=== PATIENT | female | born 2000 | race Caucasian/White ===

== ENCOUNTER 2024-01-30 23:58 | Emergency (ER) | payer SELFPAY ==
[2024-01-31] VITALS: BP 123/73; PULSE 77; TEMP 36.6; O2SAT 98; BMI 19.1
[2024-01-31] MEDS: PREDNISONE 20 MG TABLET 40 MG PO (00:24)
[2024-01-31] MEDS: CYCLOBENZAPRINE HCL 10 MG TABLET PO (00:24)
--- NOTE | 2024-01-31 00:32 | ED.GENADUL1 ---
HPI HPI - General Adult General Chief complaint: Back Pain/Injury Stated complaint: back pain Time Seen by Provider: 01/30/24 23:58 Source: patient Mode of arrival: walk-in Limitations: no limitations History of Present Illness HPI narrative: 23-year-old female to the emergency department chief complaint of back pain for over a month. She was seen at an outside hospital and had an x-ray performed which was negative. She has been taking Robaxin but it causes vomiting. She took naproxen. She has been using Excedrin at home as well. She reports the pain is worse when bending over. She denies any numbness, weakness, tingling. No bowel bladder incontinence or retention. No saddle anesthesia. She failed to follow-up with primary care or establish visit. The inciting injury was tripping over a cart at work. She did not fall to the ground. She reports she twisted funny has had back pain ever since. Pain is across her lower back. There is no radiation of the pain. She denies . Related Data Previous Rx's ?Medication ?Instructions ?Recorded cyclobenzaprine 10 mg tablet 10 mg PO BID PRN muscle spasm #10 01/31/24 tabs prednisone 20 mg tablet 40 mg (2 x 20 mg) PO DAILY 5 days 01/31/24 #10 tabs Allergies Allergy/AdvReac Type Severity Reaction Status Date / Time No Known Drug Allergies Allergy Verified 01/31/24 00:05 Opioid HPI Opioid Management Most Recent Opioid Data: No Data to Display Review of Systems ROS Status of ROS 10 or more systems reviewed and unremarkable except as noted in history and below PFSH PFSH Social History Little interest or pleasure in doing things: not at all Feeling down, depressed, or hopeless: not at all Exam Narrative Exam Narrative: VITALS: I have reviewed the triage vital signs. GENERAL: Well developed, well appearing adult in no acute distress. NEURO: Alert and oriented. Moves all extremities. Face is symmetric and expressive. Patellar reflexes brisk and equal bilaterally. Normal gait. Plantar flexion/dorsiflexion, knee flexion/extension, hip flexion/extension are grossly intact with 5/5 strength. Sensation is intact across the bilateral lower extremities. SPINE: No midline cervical, thoracic, or lumbar tenderness. No step-off or deformities. No paraspinal muscle tenderness or increased tone. EYES: PERRL. No scleral icterus or conjunctival injection. No discharge. HENT: Normocephalic, atraumatic. Hearing is grossly intact. Nares grossly patent and without discharge. Mucous membranes moist. NECK: No JVD. Patient moves neck without restriction. GI/: Abdomen is soft and non-tender. Normoactive bowel sounds. No flank tenderness. EXTREMITIES: Symmetric muscle bulk. No joint swelling. No clubbing, cyanosis, or deformity. SKIN: Warm and dry. Normal turgor. No rash or lesions appreciated. PSYCH: Mood, affect, and interaction is appropriate to the setting. Constitutional Vital Signs, click to edit/add: Last Vital Signs Temp 97.8 F 01/31/24 00:00 Pulse 77 01/31/24 00:00 Resp 18 01/31/24 00:00 BP 123/73 01/31/24 00:00 Pulse Ox 98 01/31/24 00:00 O2 Del Method Room Air 01/31/24 00:00 Course Vital Signs Vital signs: Vital Signs Temperature 97.8 F 01/31/24 00:00 Pulse Rate 77 01/31/24 00:00 Respiratory Rate 18 01/31/24 00:00 Blood Pressure 123/73 01/31/24 00:00 Pulse Oximetry 98 01/31/24 00:00 Oxygen Delivery Method Room Air 01/31/24 00:00 Temperature 97.8 F 01/31/24 00:00 Pulse Rate 77 01/31/24 00:00 Respiratory Rate 18 01/31/24 00:00 Blood Pressure 123/73 01/31/24 00:00 Pulse Oximetry 98 01/31/24 00:00 Oxygen Delivery Method Room Air 01/31/24 00:00 Medical Decision Making [facility] Narrative Medical decision making narrative: 23-year-old female to the emergency department chief complaint of back pain. Symptoms ongoing over a month. Received evaluation at [facility] in early December for this that included a x-ray without acute findings. She has a nonfocal neurologic exam. There are no signs of cord compressing lesion. She failed to follow-up. No indication for further workup at this time. I recommended she establish with primary care. I recommend she continue ibuprofen or naproxen at home. Will try Flexeril as she did not like the Robaxin. She will be placed on a short course of steroids. Return precautions were discussed. All questions were answered. The patient was discharged home. Medical Records Medical records reviewed: Yes I reviewed the patient's medical records Discharge Plan Discharge Chief Complaint: Back Pain/Injury Clinical Impression: Strain of lumbar region Patient Disposition: Home, Self-Care Condition: Good Mode of Transportation: Private Vehicle Prescriptions / Home Meds: New cyclobenzaprine 10 mg tablet 10 mg PO BID PRN (Reason: muscle spasm) Qty: 10 0RF prednisone 20 mg tablet 40 mg PO DAILY 5 Days Qty: 10 0RF Print Language: Swedish Instructions: Low Back Strain (ED), Lower Back Exercises (ED) Additional Instructions: Call the office of your primary care doctor to arrange for follow-up within the above-stated timeframe. Your ED visit was focused on your acute issue and does not replace primary care. You should review your labs, imaging, and diagnoses from this ED visit with your primary care physician. There may be non-emergent/ incidental findings that need further evaluation. You should review your vital signs including blood pressure with your PCP. If you were prescribed medications you should discuss possible side-effects and drug interactions with your pharmacist. Call 911 or go to the nearest Emergency Department if you develop any new or worsening symptoms. Seek immediate medical attention if you develop: increasing pain, numbness, tingling, weakness, loss of motion in your arms or legs, loss of control of your urine or stool, fever, abdominal pain, chest pain, shortness of breath, or any new or worsening symptoms. Referrals: Physician,Non-Staff, [Primary Care Provider] - 1 week Stacey Robles MD [Physician] - 1 week Discharge Date/Time: 01/31/24 00:29
== END 2024-01-31 00:29 | disposition home or self-care (01) ==
PROVIDERS: Emergency Provider Student in an Organized Health Care Education/Training Program
DX: S39.012A Strain of muscle, fascia and tendon of lower back, initial encounter (principal); X50.1XXA Overexertion from prolonged static or awkward postures, initial encounter
CPT/HCPCS: 99283; J7512